=== PATIENT | male | born 1990 | race Caucasian/White ===

== ENCOUNTER 2024-07-16 18:11 | Emergency (ER) | payer OTHER ==
[2024-07-16 18:36] VITALS: BP 154/91; PULSE 95; RESP 20; TEMP 98.2; BMI 21.4
[2024-07-16] MEDS ORDERED: KETOROLAC TROMETHAMINE 30 MG/1 ML VIAL ONE (19:34)
[2024-07-16] MEDS ORDERED: diphenhydrAMINE HCL 25 MG CAPSULE (FP) PO ONE (19:35)
[2024-07-16] MEDS: KETOROLAC TROMETHAMINE 30 MG/1 ML VIAL IM ONE (19:43)
[2024-07-16] MEDS: diphenhydrAMINE HCL 25 MG CAPSULE (FP) PO ONE (19:44)
== END 2024-07-16 20:49 | disposition home or self-care (01) ==
LOC: JER 18:11
PROC: 3E0233Z Introduction of Anti-inflammatory into Muscle, Percutaneous Approach (ICD-10-PCS; principal; 2024-07-16)
DX: L29.9 Pruritus, unspecified (principal); R51.9 Headache, unspecified; T46.7X5A Adverse effect of peripheral vasodilators, initial encounter
CPT/HCPCS: 99284-25